=== PATIENT | female | born 1995 | race Hispanic/Latino ===

== ENCOUNTER 2018-03-10 10:58 | Emergency (ER) | payer OTHER, SELFPAY ==
[2018-03-10] MEDS ORDERED: IBUPROFEN 600 MG TABLET ONE (11:51)
[2018-03-10] MEDS ORDERED: ONDANSETRON ODT 4 MG TAB ONE (11:51)
== END 2018-03-10 13:49 | disposition home or self-care (01) ==
LOC: EDH 10:58
DX: S13.4XXA Sprain of ligaments of cervical spine, initial encounter (principal); S05.11XA Contusion of eyeball and orbital tissues, right eye, initial encounter; M54.5 Low back pain; F41.9 Anxiety disorder, unspecified; J45.909 Unspecified asthma, uncomplicated; W01.198A Fall on same level from slipping, tripping and stumbling with subsequent striking against other object, initial encounter; Y93.E1 Activity, personal bathing and showering; Y92.89 Other specified places as the place of occurrence of the external cause; Y99.8 Other external cause status
CPT/HCPCS: 70450; 70480; 72040; 72100; 81025

== ENCOUNTER 2018-05-08 22:46 | Emergency (ER) | payer BC ==
[2018-05-08] MEDS ORDERED: DEXAMETHASONE SOD PHOSPHATE 10MG/ML 1ML VIAL ONE (23:49)
[2018-05-08] MEDS ORDERED: IPRATROPIUM/ALBUTEROL SULFATE 3 ML SOLUTION IH ONE (23:59)
[2018-05-09] MEDS ORDERED: IPRATROPIUM 0.5 MG/2.5 ML INH IH ONE (00:10)
== END 2018-05-09 01:06 | disposition home or self-care (01) ==
LOC: EDH 22:46
DX: J45.41 Moderate persistent asthma with (acute) exacerbation (principal); F41.9 Anxiety disorder, unspecified
CPT/HCPCS: 71045; 81025; 87804 ×2; 94640; 96372; 99285; J1100

== ENCOUNTER 2018-05-22 06:03 | Emergency (ER) | payer BC ==
[2018-05-22] MEDS ORDERED: IBUPROFEN 400 MG TABLET ONE (07:41)
[2018-05-22] MEDS ORDERED: IBUPROFEN 200 MG TAB ONE (07:44)
[2018-05-22] MEDS ORDERED: IPRATROPIUM/ALBUTEROL SULFATE 3 ML SOLUTION IH ONE (07:52)
== END 2018-05-22 08:49 | disposition home or self-care (01) ==
LOC: EDH 06:03
DX: M94.0 Chondrocostal junction syndrome [Tietze] (principal); F41.9 Anxiety disorder, unspecified; J45.909 Unspecified asthma, uncomplicated; Z79.899 Other long term (current) drug therapy
CPT/HCPCS: 71046; 81025; 93005

== ENCOUNTER 2021-07-19 15:19 | Emergency (ER) | payer BC, OTHER ==
[~2021-07-19] VITALS: Ht 172.7 cm; Wt 79.8 kg
[2021-07-19 16:01] LABS: APPEARANCE,URINE Clear (CLEAR); BILIRUBIN,URINE Negative (NEGATIVE); COLOR,URINE Yellow (YELLOW); GLUCOSE, URINE (UA) Negative (NEGATIVE); KETONES,URINE Negative (NEGATIVE); LEUKOCYTE ESTERASE ,URINE Small (NEGATIVE); NITRATE,URINE Negative (NEGATIVE); OCCULT BLOOD,URINE Negative (NEGATIVE); PROTEIN,URINE Negative (NEGATIVE); UROBILINOGEN,URINE 0.2 mg/dL (0.2-1.0)
[2021-07-19 16:04] LABS: HCG,QUAL RESULT NEGATIVE (NEGATIVE)
[2021-07-19 16:12] LABS: BACTERIA,URINE Few /HPF (None Seen); MUCUS,URINE Few LPF (None Seen); SQUAMOUS EPITHELIAL CELL,UR Few /HPF (0-2)
[2021-07-19] MEDS ORDERED: LACTATED RINGERS 1000ML 1,000 ML IV SCH (16:30)
[2021-07-19] MEDS ORDERED: ACETAMINOPHEN 500 MG TABLET PO ONE (16:30)
[2021-07-19] MEDS ORDERED: OSELTAMIVIR PHOSPHATE 75 MG CAP PO ONE (17:00)
[2021-07-19] MEDS ORDERED: 0.9%NACL 1000ML 1,000 ML IV SCH (17:30)
[2021-07-19] MEDS ORDERED: ONDANSETRON 4MG INJ IVP ONE (17:30)
[2021-07-19] MEDS ORDERED: OSEL75 PO (18:08)
[2021-07-19] MEDS ORDERED: ACET-2247 PO (18:08)
[2021-07-19] MEDS ORDERED: ONDA4TAB10 PO (18:26)
[2021-07-19 18:28] VITALS: BP 137/56
== END 2021-07-19 18:23 | disposition home or self-care (01) ==
LOC: EDH 15:19
DX: J10.1 Influenza due to other identified influenza virus with other respiratory manifestations (principal); E86.0 Dehydration; I95.1 Orthostatic hypotension; Z20.822 Contact with and (suspected) exposure to COVID-19
CPT/HCPCS: 71045; 81001; 81025; 87635; 87804 ×2; 96361; 96374; 99284; C9803; J2405

== ENCOUNTER 2021-09-06 23:19 | Emergency (ER) | payer OTHER ==
[~2021-09-06] VITALS: Ht 170.2 cm; Wt 81.2 kg
[~2021-09-06 23:19] MED LIST: ACET-2247 PO; ONDA4TAB10 PO; OSEL75 PO
[2021-09-07] MEDS ORDERED: KETOROLAC 30MG VIAL (30MG/ML) IV ONE (00:30)
[2021-09-07 00:35] LABS: BASOPHILS % (AUTO) 0.6 % (0.0-5.0); EOSINOPHILS % (AUTO) 2.1 % (0.0-8.0); HEMATOCRIT 38.9 % (36-48); LYMPHOCYTES % (AUTO) 39.7 % (21.0-51.0); MEAN CORPUSCULAR HEMOGLOBIN 27.6 pg (27.0-33.0); MEAN CORPUSCULAR HGB CONC 34.4 g/dL (32.0-36.0); MONOCYTES % (AUTO) 7.5 % (3.0-13.0); NEUTROPHILS % (AUTO) 49.8 % (40.0-77.0); PLATELET COUNT (AUTO) 331 K/uL (130-400); RED BLOOD CELL COUNT(AUTO) 4.86 MIL/uL (4.00-5.50); RED CELL DISTRIBUTION WIDTH 13.4 % (11.0-15.5); WHITE BLOOD COUNT (AUTO) 11.4 K/uL (4.8-10.8)
[2021-09-07 00:43] LABS: CREATININE 0.7 mg/dL (0.5-1.5); POTASSIUM 3.8 mmol/L (3.5-5.1)
[2021-09-07 00:47] LABS: TOTAL PROTEIN, SERUM 7.2 g/dL (6.0-8.3)
[2021-09-07] MEDS ORDERED: NAPR-1180 PO (01:14)
[2021-09-07 01:20] VITALS: BP 118/74
== END 2021-09-07 01:48 | disposition home or self-care (01) ==
LOC: EDH 23:19
DX: R07.89 Other chest pain (principal); J45.909 Unspecified asthma, uncomplicated; Z79.1 Long term (current) use of non-steroidal anti-inflammatories (NSAID); Z79.899 Other long term (current) drug therapy; Z86.16 Personal history of COVID-19
CPT/HCPCS: 99285; 82550; 84484; 80053; 85025; 85378; 81025; 36415; 96374; 71045; 93005; J1885

== ENCOUNTER 2023-02-24 10:49 | Emergency (ER) | payer OTHER ==
[~2023-02-24] VITALS: Ht 172.7 cm; Wt 77.6 kg
[~2023-02-24 10:49] MED LIST changes: +NAPR-1180 PO
[2023-02-24 11:15] VITALS: BP 136/78; PULSE 96; RESP 20
[2023-02-24] MEDS ORDERED: FAMOTIDINE 20MG TAB PO ONE (12:00)
[2023-02-24] MEDS ORDERED: LIDOCAINE HCL 2% VISCOUS 15 ML UDCUP PO ONE (12:00)
[2023-02-24] MEDS ORDERED: METOCLOPRAMIDE 10 MG TABLET PO ONE (12:00)
[2023-02-24] MEDS ORDERED: MAG/ALUM/SIMETH 30 ML UDCUP PO ONE (12:00)
[2023-02-24] MEDS ORDERED: DICYCLOMINE HCL 10 MG/5 ML ML PO ONE (12:00)
[2023-02-24 12:09] LABS: APPEARANCE,URINE CLEAR (CLEAR); BILIRUBIN,URINE NEGATIVE (NEGATIVE); COLOR,URINE LIGHT-YELLOW (YELLOW); GLUCOSE, URINE (UA) NEGATIVE (NEGATIVE); KETONES,URINE NEGATIVE (NEGATIVE); LEUKOCYTE ESTERASE ,URINE NEGATIVE Leu/uL (NEGATIVE); NITRATE,URINE NEGATIVE (NEGATIVE); OCCULT BLOOD,URINE NEGATIVE (NEGATIVE); PH,URINE 5.5 (5.0-8.0); PROTEIN,URINE NEGATIVE (NEGATIVE); UROBILINOGEN,URINE 0.2 mg/dL (0.2-1.0)
[2023-02-24 12:11] LABS: HCG,QUALITATIVE URINE NEGATIVE (NEGATIVE)
[2023-02-24 12:12] LABS: ADD UA MICROSCOPIC NO
[2023-02-24] MEDS ORDERED: FAMO-136 PO (12:36)
[2023-02-24] MEDS ORDERED: METO-296 PO (12:36)
== END 2023-02-24 12:45 | disposition home or self-care (01) ==
LOC: EDH 10:49
DX: K29.70 Gastritis, unspecified, without bleeding (principal); F41.9 Anxiety disorder, unspecified; J45.909 Unspecified asthma, uncomplicated; Z79.899 Other long term (current) drug therapy
CPT/HCPCS: 81003; 81025

== ENCOUNTER 2023-02-25 19:32 | Emergency (ER) | payer OTHER ==
[~2023-02-25 19:32] MED LIST changes: +FAMO-136 PO; +METO-296 PO
== END 2023-02-25 21:16 | disposition left against medical advice (07) ==
LOC: EDH 19:32
DX: R10.9 Unspecified abdominal pain (principal); Z53.21 Procedure and treatment not carried out due to patient leaving prior to being seen by health care provider

== ENCOUNTER → 2024-05-11 | Outpatient (CLI) | payer OTHER ==
[~2024-05-11] MED LIST changes: +ONDA-243 PO; -ONDA4TAB10 PO
--- NOTE | 2024-05-11 14:48 | HMCIMG ---
MR BRAIN WO CON HISTORY: Vertigo COMPARISON: None TECHNIQUE: MRI of the brain was performed utilizing multiple pulse sequences in axial, coronal and sagittal planes. Patient was not given contrast through intravenous route. FINDINGS: The ventricles and extraventricular CSF spaces are nondilated for patient's age. There is no midline shift, mass effect or herniation. No subacute hemorrhage is seen. No MR evidence of acute infarct is seen in the diffusion weighted images. Cerebellar tonsils are in normal position. No evidence of mucoperiosteal thickening is seen of the visualized paranasal sinuses. No MR evidence of a mass lesion is seen in this noncontrast study. IMPRESSION: 1. No MR evidence of acute infarct is seen in the diffusion weighted images.
== END | disposition home or self-care (01) ==
LOC: RAH 11:00
PROVIDERS: ATTEND Nurse Practitioner Family
DX: R42 Dizziness and giddiness (principal); R55 Syncope and collapse
CPT/HCPCS: 70551